=== PATIENT | male | born 1945 | race Caucasian/White ===

== ENCOUNTER 2017-05-19 18:30 | Emergency (ER) | payer MEDICARE, BC ==
[~2017-05-19] VITALS: Ht 182.9 cm; Wt 130.0 kg
[2017-05-19 19:42] LABS: HEMATOCRIT 47.7 % (39.0-50.0); HEMOGLOBIN 15.9 g/dl (14.0-18.0); IMMATURE GRANULOCYTES 0.5 % (0.0-1.0); MEAN CELL VOLUME 94.1 fL CALC (80.0-100.0); MEAN CORPUSCULAR HGB 31.4 pG CALC (26.0-32.0); MEAN CORPUSCULAR HGB CONC 33.3 g/L CALC (32.0-36.0); NEUT# 7.05 thou/uL (1.82-7.42); RED BLOOD COUNT 5.07 mill/uL (4.70-6.10)
[2017-05-19 19:49] LABS: URINE BILIRUBIN - DIPSTICK NEGATIVE (NEGATIVE); URINE BLOOD DIPSTICK NEGATIVE (NEGATIVE); URINE COLOR YELLOW; URINE GLUCOSE - DIPSTICK NEGATIVE (NEGATIVE); URINE KETONE NEGATIVE (NEGATIVE); URINE LEUK ESTERASE NEGATIVE (NEGATIVE); URINE NITRITE - DIPSTICK NEGATIVE (Negative); URINE PROTEIN - DIPSTICK NEGATIVE (NEG-TRACE); URINE SPECIFIC GRAVITY <=1.005; URINE UROBILINOGEN - DIPSTICK 0.2 E.U./dL (0.2)
[2017-05-19 19:51] LABS: BARBITURATES NEGATIVE (NEGATIVE); COCAINE NEGATIVE (NEGATIVE); METHADONE NEGATIVE (NEGATIVE); OXCYCODONE NEGATIVE (NEGATIVE); TETRAHYDROCANNABIONOL NEGATIVE (NEGATIVE); TRICYLIC ANTIDEPRESSANTS NEGATIVE (NEGATIVE); URINE CLARITY CLEAR
[2017-05-19 19:53] LABS: ALBUMIN 4.4 g/dL (3.2-5.0); ALKALINE PHOSPHATASE 189 u/l (38-126); ANION GAP 21 (6-22 (CALC)); BILIRUBIN, TOTAL 0.6 mg/dL (0.0-1.4); BUN 8 mg/dL (8-23); BUN/CREATININE RATIO 11 (12-20 (CALC)); CALCIUM 9.3 mg/dL (8.4-10.2); CARBON DIOXIDE 21 mmol/l (22-30); CHLORIDE 104 mmol/l (95-108); CREATININE 0.7 mg/dL (0.7-1.3); ETHYL ALCOHOL 278 mg/dl (0-30); GFR > 60 ML/MIN (>=60 (CALC)); GFR FOR AFR.AMER. > 60 ML/MIN (>=60 (CALC)); GLUCOSE 102 mg/dL (82-115); LIPASE 100 u/l (23-300); POTASSIUM 3.9 mmol/l (3.5-5.1); SGOT/AST 51 u/l (19-48); SGPT/ALT 40 u/l (11-66); SODIUM 142 mmol/l (137-146)
[2017-05-20 06:50] VITALS: BP 122/64
== END 2017-05-20 06:50 | disposition home or self-care (01) ==
LOC: ED 18:30
PROVIDERS: Family Medicine
DX: F10.129 Alcohol abuse with intoxication, unspecified (principal); R55 Syncope and collapse; M54.9 Dorsalgia, unspecified